=== PATIENT | female | born 1985 | race Caucasian/White ===

== ENCOUNTER 2019-12-27 13:54 | Emergency (ER) | payer BC ==
--- NOTE | 2019-12-27 14:54 | EDM.PDOC ---
ED HPI GENERAL MEDICAL PROBLEM - General Chief Complaint: Abdominal Pain Stated Complaint: ABDOMINAL PAIN Time Seen by Provider: 12/27/19 14:46 Source of Information: Reports: Patient History Limitations: Reports: No Limitations - History of Present Illness INITIAL COMMENTS - FREE TEXT/NARRATIVE: This 34 year old female is admitted to the ED with a chief complaint of left upper quad abdominal pain for one and a half weeks. She states that the pain has gotten worse. The pain is sharp to dull and has been constant for the last 6 hours. She complains of nausea but no vomiting. She states that she has not had a appetite in two to three days and is not taking in fluids due to loss of appetite. She states that eating causes the abdominal pain to increase. She complains of 4 loose stools today. Her LMP was December 08, 2019. She is status tubal ligation 6 years ago. She denies any urinary symptoms. She denies any other symptoms at this time. Onset: Gradual (3-4 days) Location: Reports: Other (throat) Severity: Mild (to moderate abdominal pain) Improves with: Reports: None Worsens with: Reports: Eating Associated Symptoms: Reports: Nausea/Vomiting (Nausea but no vomiting), Weakness left upper abdomen Pain Score (Numeric/FACES): 8 - Related Data Allergies Allergy/AdvReac Type Severity Reaction Status Date / Time No Known Allergies Allergy Verified 12/27/19 14:10 Home Meds: Home Meds FLUoxetine [PROzac] 20 mg PO DAILY 12/27/19 [History] Omeprazole Magnesium [Prilosec Otc] 1 tab PO DAILY 12/27/19 [History] Past Medical History HEENT History: Reports: None MAT SEWER History: Reports: Other MAT SEWER History: children x4 - Infectious Disease History Infectious Disease History: Reports: Chicken Pox - Past Surgical History GI Surgical History: Reports: Cholecystectomy Female Surgical History: Reports: Tubal Ligation Social & Family History - Family History Family Medical History: Noncontributory - Tobacco Use Smoking Status *Q: Never Smoker - Caffeine Use Caffeine Use: Reports: Coffee - Recreational Drug Use Recreational Drug Use: No ED ROS GENERAL - Review of Systems Review Of Systems: See Below Constitutional: Reports: No Symptoms, Fatigue (mild fatigue) HEENT: Reports: No Symptoms Respiratory: Reports: No Symptoms Cardiovascular: Reports: No Symptoms Endocrine: Reports: No Symptoms GI/Abdominal: Reports: Abdominal Pain, Diarrhea, Nausea. Denies: Black Stool, Bloody Stool : Reports: No Symptoms Musculoskeletal: Reports: No Symptoms Skin: Reports: No Symptoms Neurological: Reports: No Symptoms ED EXAM, GI/ABD - Physical Exam Exam: See Below Exam Limited By: No Limitations General Appearance: Alert, WD/WN, No Apparent Distress Ears: Normal External Exam, Normal Canal, Hearing Grossly Normal, Normal TMs Nose: Normal Inspection, Normal Mucosa, No Blood Throat/Mouth: Normal Inspection, Normal Lips, Normal Teeth, Normal Gums Head: Atraumatic, Normocephalic Neck: Normal Inspection, Supple, Non-Tender, Full Range of Motion. No: Lymphadenopathy (L), Lymphadenopathy (R) Respiratory/Chest: No Respiratory Distress, Lungs Clear, Normal Breath Sounds, No Accessory Muscle Use, Chest Non-Tender Cardiovascular: Normal Peripheral Pulses, Regular Rate, Rhythm, No Edema, No Gallop, No JVD, No Murmur, No Rub GI/Abdominal Exam: Normal Bowel Sounds, Soft, No Distention, No Abnormal Bruit, No Mass, Tender (tenderness is noted in the left upper quad extending to the mid abdomen) (Female) Exam: Deferred Rectal (Female) Exam: Deferred Back Exam: Normal Inspection, Full Range of Motion Extremities: Normal Inspection, Normal Range of Motion, Normal Capillary Refill Neurological: Alert, Oriented, CN II-XII Intact, Normal Reflexes, No Motor/ Sensory Deficits Psychiatric: Normal Affect, Normal Mood Skin Exam: Warm, Dry, Intact, Normal Color, No Rash Lymphatic: No Adenopathy Course - Vital Signs Text/Narrative:: I reviewed all of the patient's lab test as well as the CT of the abdomen and pelvis. The CT scan was unremarkable. The patient feels much better at this time. Her re-evaluation shows marked improvement. She will be discharged. The patient agrees with the discharge plan. Last Recorded V/S: Last Vital Signs Temp 97 F 12/27/19 14:08 Pulse 72 12/27/19 14:08 Resp 20 12/27/19 14:08 BP 136/82 12/27/19 14:08 Pulse Ox 98 12/27/19 14:08 - Orders/Labs/Meds Orders: Active Orders 24 hr Category Date Time Status Isolation [COMM] Routine Oth 12/27/19 14:50 Active Labs: Laboratory Tests 12/27/19 12/27/19 12/27/19 Range/Units 15:18 15:40 15:40 WBC 12.69 H (4.0-11.0) K/uL RBC 4.51 (4.30-5.90) M/uL Hgb 13.9 (12.0-16.0) g/dL Hct 42.0 (36.0-46.0) % MCV 93.1 (80.0-98.0) fL MCH 30.8 (27.0-32.0) pg MCHC 33.1 (31.0-37.0) g/dL RDW Std Deviation 46.2 (28.0-62.0) fl RDW Coeff of Willem 14 (11.0-15.0) % Plt Count 457 H (150-400) K/uL MPV 9.40 (7.40-12.00) fL Neut % (Auto) 57.9 (48.0-80.0) % Lymph % (Auto) 32.4 (16.0-40.0) % [place] % (Auto) 8.7 (0.0-15.0) % Eos % (Auto) 0.6 (0.0-7.0) % Baso % (Auto) 0.4 (0.0-1.5) % Neut # (Auto) 7.4 H (1.4-5.7) K/uL Lymph # (Auto) 4.1 H (0.6-2.4) K/uL [place] # (Auto) 1.1 H (0.0-0.8) K/uL Eos # (Auto) 0.1 (0.0-0.7) K/uL Baso # (Auto) 0.1 (0.0-0.1) K/uL Nucleated RBC % 0.0 /100WBC Nucleated RBCs # 0 K/uL Sodium 141 (136-145) mmol/L Potassium 3.6 (3.5-5.1) mmol/L Chloride 105 (98-107) mmol/L Carbon Dioxide 24.9 (21.0-32.0) mmol/L BUN 13 (7.0-18.0) mg/dL Creatinine 0.9 (0.6-1.0) mg/dL Est Cr Clr Drug Dosing 73.55 mL/min Estimated GFR (MDRD) > 60.0 ml/min Glucose 88 (74-106) mg/dL Calcium 9.0 (8.5-10.1) mg/dL Total Bilirubin 0.3 (0.2-1.0) mg/dL AST 16 (15-37) IU/L ALT 34 (14-63) IU/L Alkaline Phosphatase 113 (46-116) U/L Total Protein 7.3 (6.4-8.2) g/dL Albumin 3.8 (3.4-5.0) g/dL Globulin 3.5 (2.6-4.0) g/dL Albumin/Globulin Ratio 1.1 (0.9-1.6) Lipase 67 L (73-393) U/L Urine Color YELLOW Urine Appearance CLEAR Urine pH 6.5 (5.0-8.0) Ur Specific [place] 1.020 (1.001-1.035) Urine Protein NEGATIVE (NEGATIVE) mg/dL Urine Glucose (UA) NEGATIVE (NEGATIVE) mg/dL Urine Ketones NEGATIVE (NEGATIVE) mg/dL Urine Occult Blood NEGATIVE (NEGATIVE) Urine Nitrite NEGATIVE (NEGATIVE) Urine Bilirubin NEGATIVE (NEGATIVE) Urine Urobilinogen 0.2 (<2.0) EU/dL Ur Leukocyte Esterase TRACE H (NEGATIVE) Urine RBC 0-2 (0-2/HPF) Urine WBC 3-4 (0-5/HPF) Ur Epithelial Cells FEW (NONE-FEW) Amorphous Sediment FEW (NEGATIVE) Urine Bacteria FEW (NEGATIVE) Urine Mucus FEW (NONE-MOD) Meds: Medications Discontinued Medications Generic Name Dose Route Start Last Admin Trade Name Alfonsoq PRN Reason Stop Dose Admin Sodium Chloride 1,000 mls @ 1,000 mls/hr 12/27/19 15:20 12/27/19 15:42 Normal Saline IV 12/27/19 16:19 1,000 mls/hr .Bolus ONE Administration Iopamidol 100 ml 12/27/19 17:19 12/27/19 17:20 Isovue Multipack-370 (76%) IVPUSH 12/27/19 17:20 100 ml ONETIME STA Administration Morphine Sulfate 4 mg 12/27/19 15:55 12/27/19 16:02 Morphine IVPUSH 12/27/19 15:56 4 mg ONETIME ONE Administration Ondansetron HCl 4 mg 12/27/19 15:42 12/27/19 15:45 Zofran IVPUSH 12/27/19 15:43 4 mg ONETIME ONE Administration Departure - Departure Time of Disposition: 18:04 Disposition: Home, Self-Care 01 Condition: Good Clinical Impression: Nonspecific abdominal pain - Discharge Information *PRESCRIPTION DRUG MONITORING PROGRAM REVIEWED*: Yes *COPY OF PRESCRIPTION DRUG MONITORING REPORT IN PATIENT VARGHESE: Yes Instructions: Abdominal Pain, Adult, [id number] Referrals: PCP,None [Primary Care Provider] - Forms: ED Department Discharge Additional Instructions: Clear liquids for the next 12 hours and then advance your diet as tolerated. Follow up with your PCP in the next two to four days. Rest for the next 24 hours. Return to the ED if your condition gets worse or should you have any questions or concerns. The following information is given to patients seen in the emergency department who are being discharged to home. This information is to outline your options for follow-up care. We provide all patients seen in our emergency department with a follow-up referral. The need for follow-up, as well as the timing and circumstances, are variable depending upon the specifics of your emergency department visit. If you don't have a primary care physician on staff, we will provide you with a referral. We always advise you to contact your personal physician following an emergency department visit to inform them of the circumstance of the visit and for follow-up with them and/or the need for any referrals to a consulting specialist. The emergency department will also refer you to a specialist when appropriate. This referral assures that you have the opportunity for follow-up care with a specialist. All of these measure are taken in an effort to provide you with optimal care, which includes your follow-up. Under all circumstances we always encourage you to contact your private physician who remains a resource for coordinating your care. When calling for follow-up care, please make the office aware that this follow-up is from your recent emergency room visit. If for any reason you are refused follow-up, please contact the [facility] Emergency Department at and asked to speak to the emergency department charge nurse. Sepsis Event Note - Evaluation Sepsis Screening Result: No Definite Risk - Focused Exam Vital Signs: Vital Signs Temp Pulse Resp BP Pulse Ox 12/27/19 14:08 97 F 72 20 136/82 98 Date Exam was Performed: 12/27/19 Time Exam was Performed: 18:02 - My Orders Last 24 Hours: My Active Orders 12/27/19 14:50 Isolation [COMM] Routine - Assessment/Plan Last 24 Hours: My Active Orders 12/27/19 14:50 Isolation [COMM] Routine
[2019-12-27] MEDS ORDERED: Sodium Chloride 0.9% 1,000 ML IV ONE (15:20)
[2019-12-27] MEDS ORDERED: Ondansetron 4 MG/2 ML SDV IVPUSH ONE (15:42)
[2019-12-27] MEDS ORDERED: Morphine 4 MG/ML Syringe IVPUSH ONE (15:55)
[2019-12-27 16:15] LABS: BLOOD UREA NITROGEN,BUN 13 mg/dL (7.0-18.0); CARBON DIOXIDE,CO2 24.9 mmol/L (21.0-32.0); CHLORIDE,CL 105 mmol/L (98-107); GLUCOSE RANDOM 88 mg/dL (74-106); LIPASE 67 U/L (73-393); POTASSIUM,K 3.6 mmol/L (3.5-5.1); SODIUM,NA 141 mmol/L (136-145)
[2019-12-27] MEDS ORDERED: Iopamidol 755 MG/ML 500 ML Multipack Bottle IVPUSH STA (17:19)
--- NOTE | 2019-12-27 17:46 | CT ---
INDICATION: Ten days of worsening abdominal pain. TECHNIQUE: CT abdomen and pelvis acquired with 100 mL Isovue 370 IV contrast. COMPARISON: None FINDINGS: Lower chest: Unremarkable. Liver: Mild low attenuation liver parenchyma. Spleen: Unremarkable. Pancreas: Unremarkable. Gallbladder and bile ducts: Cholecystectomy clips. No ductal dilatation. Kidneys: Early contrast excretion somewhat limits sensitivity for small non obstructing calculi. None are appreciated. Normal parenchymal enhancement. Adrenal glands: Unremarkable. GI tract: Unremarkable. Appendix is normal. Vascular structures: Negative. No sign of aneurysm. Lymph nodes: Unremarkable. Miscellaneous: Unremarkable. No free air or significant free fluid. Pelvic Organs: Unremarkable. Bones: Unremarkable for age. IMPRESSION: No acute finding CT of the abdomen and pelvis. Mild hepatic steatosis. Cholecystectomy. Please note that all CT scans at this facility use dose modulation, iterative reconstruction, and/or weight-based dosing when appropriate to reduce radiation dose to as low as reasonably achievable. Dictated by Cuba Weiner MD @ Dec 27 2019 5:46PM Signed by Dr. Cuba Weiner @ Dec 27 2019 5:46PM
== END 2019-12-27 18:28 | disposition home or self-care (01) ==
LOC: MW.ED 13:54
DX: R10.12 Left upper quadrant pain (principal); Z90.49 Acquired absence of other specified parts of digestive tract; Z79.899 Other long term (current) drug therapy
CPT/HCPCS: 36415; 74177; 80053; 81001; 83690; 85025; 96361; 96374; 96375; 99284; J2270; J2405; J7030; Q9967

== ENCOUNTER 2022-04-04 07:44 | Emergency (ER) | payer BC ==
[2022-04-04] MEDS ORDERED: Famotidine 20 MG/2 ML SDV IVPUSH ONE (08:00)
[2022-04-04] MEDS ORDERED: Alum Hydro/Mag Hydro/Simeth XS 15 ML, Lidocaine 2% 5 ML PO ONE ×2 (08:01)
[2022-04-04] MEDS ORDERED: Ondansetron 4 MG/2 ML SDV IVPUSH ONE (08:01)
[2022-04-04 08:33] LABS: CARBON DIOXIDE,CO2 24.6 mmol/L (21.0-32.0); POTASSIUM,K 4.1 mmol/L (3.5-5.1)
[2022-04-04] MEDS ORDERED: Morphine 4 MG/ML VIAL IVPUSH STA (09:25)
[2022-04-04] MEDS ORDERED: Pantoprazole 80 MG in Sodium Chloride 0.9% 10 ML IVPUSH ONE (09:29)
[2022-04-04] MEDS ORDERED: Iopamidol 755 MG/ML 500 ML Multipack Bottle IVPUSH STA (10:44)
== END 2022-04-04 11:24 | disposition home or self-care (01) ==
LOC: MW.ED 07:44
DX: K29.70 Gastritis, unspecified, without bleeding (principal)
CPT/HCPCS: 36415; 74177; 80053; 81003; 81025; 83690; 85025; 86308; 96374; 96375; 99284; A9270; C9113; J2270; J2405; J3490; Q9967

== ENCOUNTER 2022-07-29 15:51 | Emergency (ER) | payer BC ==
[2022-07-29] MEDS ORDERED: Ondansetron 4 MG/2 ML SDV IVPUSH ONE (17:05)
[2022-07-29] MEDS ORDERED: Morphine 4 MG/ML Syringe IVPUSH ONE (17:05)
[2022-07-29] MEDS ORDERED: Sodium Chloride 0.9% 1,000 ML IV ONE (17:05)
[2022-07-29 17:54] LABS: CARBON DIOXIDE,CO2 19.8 mmol/L (21.0-32.0); POTASSIUM,K 4.1 mmol/L (3.5-5.1)
[2022-07-29] MEDS ORDERED: Iopamidol 755 MG/ML 500 ML Multipack Bottle IVPUSH ONE (21:34)
== END 2022-07-29 21:00 | disposition home or self-care (01) ==
LOC: MW.ED 15:51
DX: G89.18 Other acute postprocedural pain (principal); R10.10 Upper abdominal pain, unspecified; Z98.84 Bariatric surgery status; Z90.49 Acquired absence of other specified parts of digestive tract
CPT/HCPCS: 36415; 74177; 80053; 81003; 83690; 85025; 96361; 96374; 96375; 99284; J2270; J2405; J7030; Q9967

== ENCOUNTER 2024-10-09 10:50 | Emergency (ER) | payer SELFPAY ==
[2024-10-09] MEDS: Albuterol/Ipratropium 3.0-0.5 MG/3 ML Neb Soln NEB ONE ×2 (11:01→11:05)
[2024-10-09] MEDS: predniSONE 20 MG Tab PO ONE (11:05)
== END 2024-10-09 12:32 | disposition home or self-care (01) ==
LOC: MW.ED 10:50
DX: J06.9 Acute upper respiratory infection, unspecified (principal); Z90.49 Acquired absence of other specified parts of digestive tract
CPT/HCPCS: 71045; 87428; 99285; A9270; J7620-GY